=== PATIENT | male | born 1965 | race Caucasian/White ===

== ENCOUNTER 2018-06-26 14:57 | Emergency (ER) | payer OTHER ==
[~2018-06-26] VITALS: Ht 160 cm; Wt 71.2 kg
[~2018-06-26 14:57] MED LIST: ALBU90OI INH; CIPR500 PO; IBUP800 PO; KETO10 PO; LEVFLO500 PO; NAPR550 PO; OXYACE5T PO; PRED10 PO; PROM25 PO; RXNAPNA550 PO; TAMS.4ER PO
[2018-06-26] MEDS ORDERED: TAMS.4ER PO (15:14)
[2018-06-26] MEDS ORDERED: Norco 5-325 Ta1 EACH PO (16:08)
[2018-06-26] MEDS ORDERED: IBUP600 PO (16:08)
[2018-06-26] MEDS ORDERED: CYCL10 PO (16:08)
== END 2018-06-26 17:13 | disposition home or self-care (01) ==
LOC: ER 14:57
DX: M54.5 Low back pain (principal); Z79.899 Other long term (current) drug therapy; F17.220 Nicotine dependence, chewing tobacco, uncomplicated
CPT/HCPCS: 96372; 99283-25; A9270-GY; J1885

== ENCOUNTER 2021-12-27 11:20 | Emergency (ER) | payer OTHER ==
[~2021-12-27] VITALS: Ht 160 cm; Wt 72.6 kg
[~2021-12-27 11:20] MED LIST changes: +CYCL10 PO; +IBUP600 PO; +Norco 5-325 Ta1 EACH PO
[2021-12-27] MEDS ORDERED: Norco 5-325 Ta1 EACH PO (12:39)
== END 2021-12-27 13:05 | disposition home or self-care (01) ==
LOC: ER 11:20
DX: S50.01XA Contusion of right elbow, initial encounter (principal); W01.10XA Fall on same level from slipping, tripping and stumbling with subsequent striking against unspecified object, initial encounter; Y99.0 Civilian activity done for income or pay; J45.909 Unspecified asthma, uncomplicated; F17.220 Nicotine dependence, chewing tobacco, uncomplicated
CPT/HCPCS: 73080; A9270